=== PATIENT | female | born 1940 | race Caucasian/White ===

== ENCOUNTER 2016-10-26 11:17 | Emergency (ER) | payer MEDICARE, OTHER ==
[~2016-10-26 11:17] MED LIST: LEVO50TA6 PO; LORA2TAB PO; PANT40TA2 PO; RANI300C PO; ZOLP10TA5 PO
--- NOTE | 2016-10-26 11:25 | ED.REPORT ---
HPI-Syncope Date of Service Oct 26, 2016 ED Provider: Deandre Chun MD Pt is a 76 y.o. female with a hx of GERD and breast cancer who presents to the ED via EMS after a syncopal episode prior to arrival. Pt states that she was at [employer] singing and began to feel warm and lightheaded so she sat down, after finishing the song she attempted to leave and experienced a syncopal episode. Witnesses state pt began to have convulsions while on the ground. Per EMS pt was alert and did not appear post-ictal upon their arrival. Pt states that she felt fine prior to the incident but reports subjective fever this morning upon awaking. Upon arrival to ED pt is c/o weakness. She denies chest or extremity pain, SOB, palpitations, nausea, headache, and dyspnea on exertion. She reports a hx of infrequent syncopal episodes and associated convulsions. She claims that she has been on a diet recently but had coffee and a protein bar this morning. Nursing Notes Stated Complaint: SYNCOPAL WEAKNESS Nursing Notes Reviewed: Yes ([facility], [facility] not reconciled) Allergies: Coded Allergies: Sulfa (Sulfonamide Antibiotics) (Verified Allergy, Unknown, UNKNOWN, ) Scheduled Levothyroxine (Levothyroxine) 50 Mcg Tablet 50 MCG PO DAILY Pantoprazole DR (Protonix) 40 Mg Tablet 40 MG PO DAILY Ranitidine (Ranitidine) 300 Mg Capsule 300 MG PO DAILY Scheduled PRN Lorazepam (Lorazepam) 2 Mg Tablet 2 MG PO HS PRN PRN For Insomnia Zolpidem (Zolpidem) 10 Mg Tablet 10 MG PO HS PRN PRN For Insomnia General Time Seen by Provider: 11:22 Chief Complaint Collapsed suddenly Syncope Description: Single episode Hx Obtained From: Patient, EMS Arrived By: Ambulance Onset Occurred: Just prior to arrival Symptom Duration: 1 - 15 minutes Severity: Current: No pain currently Similar Sx Previous: Yes Past Medical History Past Medical History History of Nascimento's esophagitis and GERD History of breast cancer Past Surgical History Cholecystectomy 2013 Mastectomy 1986 Left arm Smoking History Former Smoker Social History Drug Use: Denies drug use Review of Systems Constitutional: Reports: Fever (Subjective), Weakness - generalized Respiratory: Denies: Shortness of breath Cardiovascular: Denies: Chest pain, Dyspnea on exertion, Palpitations Musculoskeletal: Denies: Extremity pain Neurologic: Reports: Lightheaded, Syncope, Denies: Headache Complete sys rev & neg: except as marked. Physical Exam Initial Vital Signs Vital Signs (First) Date Time Temp Pulse Resp B/P Pulse Ox O2 Delivery O2 Flow Rate FiO2 10/26/16 11:34 90 16 126/63 100 Room Air Initial VS: Reviewed, Unavailable (none on chart, ordered) Abdomen / GI: No distention Skin: Warm, Dry, No cyanosis Psychiatric: Mood/affect normal, Behavior normal, Normal thought content General/Constitutional: Awake, Alert, No acute distress, Well appearing, Well developed, Well hydrated, Well nourished, Not toxic appearing Appears fatigued Respiratory / Chest: Atraumatic, Breath sounds NL, Breath sounds = bilat, No respiratory distress, No rales, No rhonchi, No wheezing, No retractions, No stridor Cardiovascular: Heart rate NL, Regular rhythm, Heart sounds NL, No murmurs, Peripheral circulation NL No lower extremity edema Lower Extremity / Pelvis / MS: Atraumatic, Inspection NL, Neurologic intact, Vascular intact Neurologic: Oriented X3, Speech NL Head / Eyes: Atraumatic, Normocephalic ENT: Atraumatic, Airway patent No bite injury to tongue Upper Extremity / MS: Atraumatic, Inspection NL, Full range of motion, No deformity, Neurologic intact, Vascular intact No elbow abrasions or injury Interpretation & Diagnostics Lab Results Interpretation Result Diagram: 10/26/16 1226 10/26/16 1226 Test 10/26/16 12:26 White Blood Count 7.0th/mm3 (3.8-10.1) Red Blood Count 4.37mil/mm3 (3.90-5.20) Hemoglobin 13.8g/dL (12.0-15.6) Hematocrit 41.5% (35.0-46.0) Mean Corpuscular Volume 95.0fL (81-100) Mean Corpuscular Hemoglobin 31.6pg (27.0-35.0) Mean Corpuscular Hemoglobin Concent 33.3% (32.0-37.0) Red Cell Distribution Width 13.5% (12.3-15.4) Platelet Count 230bil/L (150-400) Neutrophils (%) (Auto) 40.1% (40-74) Lymphocytes (%) (Auto) 51.2% (14-46) Monocytes (%) (Auto) 7.5% (4-12) Eosinophils (%) (Auto) 0.7% (0-5) Basophils (%) (Auto) 0.1% (0-3) Sodium Level 131mEq/L (134-144) Potassium Level 3.2mEq/L (3.5-5.2) Chloride Level 91mEq/L (97-108) Carbon Dioxide Level 20mmol/L (18-29) Blood Urea Nitrogen 14mg/dL (8-27) Creatinine 0.83mg/dL (0.57-1.00) Estimat Glomerular Filtration Rate 95mL/min (>59) Glucose Level 96mg/dL (60-99) Calcium Level 9.3mg/dL (8.5-10.1) Magnesium Level 2.0mg/dL (1.6-2.6) Total Bilirubin 0.4mg/dL (0.0-1.2) Aspartate Amino Transf (AST/SGOT) 22U/L (0-50) Alanine Aminotransferase (ALT/SGPT) 11U/L (0-32) Alkaline Phosphatase 65U/L (25-165) Troponin T 0.010ug/L (0.0-0.011) Total Protein 7.5g/dL (6.4-8.4) Albumin 4.5g/dL (3.4-5.0) Lab Results Interpretation: CBC normal CMP trace hypokalemia, nonspecific Troponin negative, but no features of true acute coronary syndrome need for serial troponins are indicated ECG Interpretation ECG Interpretation: No arrhythmic findings No findings of pre-excitation Time: 12:10 Interpreted by: ED physician Normal ECG Interpretation: Normal rate (84), Normal sinus rhythm, No acute ischemic changes X-Ray Chest Interpretation Chest Xray Interpretation: IMPRESSION: No acute cardiopulmonary disease. Dictated by: Kristi Wilson MD on 10/26/16 at 13:52 Approved by: Kristi Wilson MD on 10/26/16 at 13:53 Re-Eval/Medical Decision Med Decision/Clinical Course This is a 76-year-old female presented from [employer] following a witnessed episode of syncope when she got up. She warning feeling warm and lightheaded. This stand up to get out of [employer] and apparently passed out for a minute or 2. Question of a brief period of seizure activity, but I again strongly against seizure the patient then immediately woke up had no post ictal features so all of the history points at syncope. The patient is awake and appropriate for medics complaining of feeling poorly over the nausea. At no point did she have any chest pain, palpitations, shortness of breath. She is occasionally had syncope over the years with no pathology identified. She denies any recent illnesses, denies any recent first dehydration aside from the fact that she is trying to lose weight she ate last this past few days. She has no new medication changes, denies any bleeding, has no PE risk factors. She has no prior history of cardiac disease. She feels nauseated on arrival. And this partially improved with ondansetron but ultimately read some promethazine with then complete resolution. EKG demonstrates no acute ischemic changes. Blood work was normal she is not orthostatic, and labs are normal. Her physical exam is normal. She suffered no trauma or injuries from the event was laid down. She did not bite her tongue or have other findings more suggest seizure. No postictal confusion. On reevaluation the patient feels 100% back to normal, she is up ambulating and wishes to go home. I am not finding evidence of a dangerous etiology at this time. She had no dysrhythmic events in the department, and no prehospital findings of dysrhythmia, no EKG findings of preexcitation syndrome are present. Patient is reassured I think discharge is reasonable. However routine precautions reviewed, as explained she had new or worsening symptoms or had a recurrent syncopal episode return to the ED would be recommended. She is discharged asymptomatic in good condition. Source of Hx: Old records, EMS Re-Evaluation/Progress #1: Time of Eval: 12:25 Re-Evaluation/Progress Note: Pt is currently complaining of nausea, Zofran will be administered. Re-Evaluation/Progress #2: Time of Eval: 13:42 Re-Evaluation/Progress Note: Pt rechecked. Pt is still not feeling improved. Differential Diagnosis: Positive: Electrolyte disorder (trace hypokalemia), Vasovagal syncope, Negative: Abdominal aortic aneurysm, Anemia, Cerebrovascular accident, Head trauma, Hypoglycemia, Malingering, Medication-induced, Meningitis, Palpitations , Prolonged QT syndrome, Pulmonary embolus, Seizure, Sepsis, Subarachnoid hemorrhage Counseled Regarding: Diagnosis Discharge & Departure Impression: Primary Impression: Syncope Additional Impression: Weakness Disposition: Home Discharge Condition All VS Reviewed: Yes Condition: Stable Additional Instructions: 1. Your evaluation today suggests that you experienced an episode of syncope. We did not find any findings to indicate that you had a seizure. 2. Your EKG was normal. Your potassium was just marginally low, but is unlikely to have caused today's events and he received a dose of potassium here. 3. Take it easy today, but if feeling well you can return to full activities. 4. I do recommend that she have a full meal today, and continue drink plenty of fluids. 5. If you are having new or worsening symptoms-return to the emergency department. Referrals: Hung Slaughter MD (PCP) Scribe Attestation Portions of this note were transcribed by Pascual Cline. I, Dr. Chun personally performed the history, physical exam and medical decision-making; I reviewed and confirmed the accuracy of the information in the transcribed note. Signed by: Shaquille Helms, 10/26/16 and 1618. copies to: Hung Slaughter MD, Matthew F MD Oct 26, 2016 11:25 PASCUAL CLINE Oct 26, 2016 11:51
[2016-10-26 11:34] VITALS: BP 126/63; PULSE 90; RESP 16; O2SAT 100
[2016-10-26] MEDS ORDERED: 0.9% Sodium Chloride 1,000 ML IV ONE (12:10)
[2016-10-26] MEDS ORDERED: Ondansetron 2 mg/mL 2 mL Inj ONE (12:25)
[2016-10-26 12:29] LABS: BASOPHILS % (AUTO) 0.1 % (0-3); EOSINOPHILS % (AUTO) 0.7 % (0-5); MONOCYTES % (AUTO) 7.5 % (4-12); Mean Corpuscular Hemoglobin 31.6 pg (27.0-35.0); NEUTROPHILS % (AUTO) 40.1 % (40-74); Platelet Count 230 bil/L (150-400)
[2016-10-26] MEDS ORDERED: Ondansetron 2 mg/mL 2 mL Inj IVPUSH ONE (12:35)
[2016-10-26 12:49] LABS: TROPONIN T 0.01 ug/L (0.0-0.011)
[2016-10-26] MEDS ORDERED: Potassium Chloride 20 mEq/15 mL 15mL Oral Soln PO ONE (13:40)
[2016-10-26] MEDS ORDERED: PROMETHAZINE IV ONE (13:45)
[2016-10-26] MEDS ORDERED: PHA MIX IV ONE (13:45)
[2016-10-26] MEDS ORDERED: DEXTROSE 5% IV ONE (13:45)
[2016-10-26 14:34] VITALS: BP 105/85; PULSE 88; RESP 15; O2SAT 100
--- NOTE | 2016-10-26 15:15 | DRSVH ---
PROCEDURE: X-RAY CHEST ONE VIEW, PORTABLE ([id number]) INDICATIONS: syncope TECHNIQUE: One view of the chest was acquired. COMPARISON: [facility], , CHEST 2VW, 01/19/2009, 10:53. [facility], , CHEST 2VW, 10/14/2007, 11:49. FINDINGS: Surgical changes and devices: Multiple surgical clips in the left breast and axilla. Lungs and pleura: No pleural effusions or pneumothorax. Mild diffuse interstitial prominence bilate rally. Mediastinum: Mediastinal contours appear normal. Heart size is normal. Bones and chest wall: No suspicious bony lesions. Overlying soft tissues appear unremarkable. IMPRESSION: No acute cardiopulmonary disease. Dictated by: Kristi Wilson M.D. on 10/26/2016 at 13:52 Approved by: Kristi Wilson M.D. on 10/26/2016 at 13:53
[2016-10-26 15:40] VITALS: BP 145/63; PULSE 87
[2016-10-26 15:42] VITALS: BP_SYST 119; BP_SYST 142; BP_DIAS 60; BP_DIAS 68; PULSE 103; PULSE 89
[2016-10-26 16:28] VITALS: BP 119/60; PULSE 103; RESP 15; O2SAT 100
== END 2016-10-26 16:29 | disposition home or self-care (01) ==
LOC: EDBD 11:17 → SED 11:17
DX: R55 Syncope and collapse (principal); R53.1 Weakness; K21.9 Gastro-esophageal reflux disease without esophagitis; Z85.3 Personal history of malignant neoplasm of breast; Z87.891 Personal history of nicotine dependence; Z88.2 Allergy status to sulfonamides
CPT/HCPCS: 71010; 80053; 83735; 84484; 85025; 93005; 96361; 96374; 99285; J2405